=== PATIENT | male | born 1985 | race African-American/Black ===

== ENCOUNTER 2016-11-10 09:53 | Emergency (ER) | payer SELFPAY ==
[2016-11-10 10:52] VITALS: BP 133/73
--- NOTE | 2016-11-10 11:13 | PHYS DOC ---
Past Medical History Past Medical History: Asthma, Other Additional Past Medical Histor: SEASONAL ALLERGIES Past Surgical History: No Surgical History Alcohol Use: Occasionally Drug Use: None Adult General Chief Complaint Chief Complaint: MULTIPLE COMPLAINTS HPI HPI Patient is a 31 year old presents emergency department stating that he has been having a cough and congestion with nausea and vomiting patient states she' s also been having some diarrhea as well. He denies nausea vomiting and diarrhea today. He states he had approximately 3 diarrhea stools yesterday denies any blood being in the stool. Patient states he vomited yesterday denies any blood in the emesis. He states he's just has really felt as though he cannot get out of bed today and needed to come to the emergency department. He states that this is been occurring since Monday. Patient denies taTranquilMed medicaiton over the counter. Review of Systems Review of Systems Constitutional: Denies fever or chills [] Eyes: Denies change in visual acuity, redness, or eye pain [] HENT: nasal congestion denies sore throat [] Respiratory: cough denies shortness of breath [] Cardiovascular: No additional information not addressed in HPI [] GI: Denies abdominal pain, C/o nausea, vomiting, and diarrhea [] : Denies dysuria or hematuria [] Musculoskeletal: Denies back pain or joint pain [] Integument: Denies rash or skin lesions [] Neurologic: Denies headache, focal weakness or sensory changes [] Current Medications Current Medications Current Medications Medications (Trade) Dose Ordered Sig/Yony Start Time Stop Time Status Last Admin Dose Admin Ondansetron HCl (Zofran Odt) 4 mg 1X ONCE 11/10/16 11:15 11/10/16 11:16 DC 11/10/16 11:15 4 MG Allergies Allergies Allergies Coded Allergies Type Severity Reaction Last Updated Verified No Known Drug Allergies 12/21/14 No Physical Exam Physical Exam Constitutional: Well developed, well nourished, no acute distress, non-toxic appearance. [] HENT: Normocephalic, atraumatic, bilateral external ears normal, oropharynx moist, no oral exudates, nose normal. Bilateral tympanic membranes appear to be normal. Throat with no exudate. Eyes: PERRLA, EOMI, conjunctiva normal, no discharge. [] Neck: Normal range of motion, no tenderness, supple, no stridor. [] Cardiovascular:Heart rate regular rhythm, no murmur [] Lungs & Thorax: Bilateral breath sounds clear to auscultation [] Abdomen: Bowel sounds hypoactive, soft, no tenderness, no masses, no pulsatile masses. [] Skin: Warm, dry, no erythema, no rash. [] Back: No tenderness Extremities: No tenderness, no cyanosis, no clubbing, ROM intact, no edema. [] Neurologic: Alert and oriented X 3, normal motor function, normal sensory function, no focal deficits noted. [] Psychologic: Affect normal, judgement normal, mood normal. [] Current Patient Data Vital Signs Vital Signs Date Time Temp Pulse Resp B/P Pulse Ox O2 Delivery O2 Flow Rate FiO2 11/10/16 10:34 98.9 90 24 133/73 94 Room Air 98.9 Lab Values Laboratory Tests Test 11/10/16 11:20 Influenza Type A Antigen Positive (NEGATIVE) Influenza Type B Antigen Negative (NEGATIVE) EKG EKG [] Radiology/Procedures Radiology/Procedures [] Course & Med Decision Making Course & Med Decision Making Pertinent Labs and Imaging studies reviewed. (See chart for details) Influenza A was positive. Patient was provided with Zofran here in the emergency department with a by mouth challenge completed. Patient was able to tolerate fluids. Patient will be discharged home with recommendations for Tylenol and ibuprofen for fever chills and generalized body aches and discomfort. We'll provided with a prescription of Zofran for his nausea feeling recommended clear liquid diet for the next 24 hours. Also encourage plenty of fluids such as water or Gatorade and propel. Signs and symptoms to return back to emergency department as been provided. Patient agrees with discharge instructions treatment regimens and follow-up recommendations. [] Dragon Disclaimer Dragon Disclaimer This electronic medical record was generated, in whole or in part, using a voice recognition dictation system. Departure Departure Impression: Primary Impression: Influenza A Disposition: HOME, SELF-CARE Condition: STABLE Referrals: NO PCP (PCP) Patient Instructions: Influenza, Adult, [id number] Additional Instructions: You have been evaluated here in the emergency department. He had been noted to have influenza A. Drink plenty of fluids such as water, Gatorade, or propel. Tylenol or ibuprofen for fever chills or generalized body aches and discomfort. Medication as prescribed. Clear liquid diet for the next 24 hours. Rest as much as possible. Follow-up to primary care physician in the next week. Return back to emergency department for signs and symptoms of become worse. Scripts Ondansetron (Zofran Odt)4 Mg Tab.rapdis1 Tab SL Q8HRS #10 TAB Prov:ARLYN JASMINE NP 11/10/16 ARLYN JASMINE NP Nov 10, 2016 11:13
[2016-11-10] MEDS ORDERED: ONDANSETRON ODT 4 MG TAB.RAPDIS PO ONE (11:15)
[2016-11-10 11:56] LABS: OBC FLU VALID
[2016-11-10] MEDS ORDERED: ONDA4TAB10 SL (12:03)
== END 2016-11-10 12:01 | disposition home or self-care (01) ==
LOC: ER 09:53
DX: J09.X2 Influenza due to identified novel influenza A virus with other respiratory manifestations (principal); R11.2 Nausea with vomiting, unspecified; J45.909 Unspecified asthma, uncomplicated
CPT/HCPCS: 87804; 99284; Q0162

== ENCOUNTER 2019-05-14 12:42 | Emergency (ER) | payer BC ==
[~2019-05-14] VITALS: Ht 165.1 cm; Wt 77.1 kg
[~2019-05-14 12:42] MED LIST: ONDA4TAB10 SL
[2019-05-14 12:56] VITALS: BP 112/56
[2019-05-14] MEDS ORDERED: CYCL5TAB PO (13:06)
--- NOTE | 2019-05-14 13:06 | PHYS DOC ---
Past Medical History Past Medical History: No Pertinent History Additional Past Medical Histor: SEASONAL ALLERGIES Past Surgical History: No Surgical History Alcohol Use: None Drug Use: None Adult General Chief Complaint Chief Complaint: BACK PAIN - NO INJURY [facility] Patient is a 33 year old male presents to the ED complaining of right flank pain times one day ago. Patient states he lifts heavy things at work and states that when he stops lifting things and his muscles relaxed he felt pain in his right flank. States that when he tries to move it hurts worse. States that he thinks he pulled a muscle. Pain does not radiate. States he has not taken any medication for the pain. Denies fever, bowel/bladder changes, saddle anesthesia, radiating pain, weakness, dysuria, hematuria, headache, chest pain or shortness of breath. Review of Systems Review of Systems Constitutional: Denies fever or chills [] Eyes: Denies change in visual acuity, redness, or eye pain [] HENT: Denies nasal congestion or sore throat [] Respiratory: Denies cough or shortness of breath [] Cardiovascular: No additional information not addressed in HPI [] GI: Denies abdominal pain, nausea, vomiting, bloody stools or diarrhea [] : Denies dysuria or hematuria [] Musculoskeletal: Complains of back pain. Denies joint pain [] Integument: Denies rash or skin lesions [] Neurologic: Denies headache, focal weakness or sensory changes [] All other systems were reviewed and found to be within normal limits, except as documented in this note. Allergies Allergies Allergies Coded Allergies Type Severity Reaction Last Updated Verified No Known Drug Allergies 12/21/14 No Physical Exam Physical Exam Constitutional: Well developed, well nourished, no acute distress, non-toxic appearance. [] HENT: Normocephalic, atraumatic Neck: Normal range of motion, no tenderness, supple, no stridor. [] Cardiovascular:Heart rate regular rhythm, no murmur [] Lungs & Thorax: Bilateral breath sounds clear to auscultation [] Abdomen: Bowel sounds normal, soft, no tenderness, no masses, no pulsatile masses. [] Skin: Warm, dry, no erythema, no rash. [] Back: Mild right flank muscle spasm. No bony tenderness, FROM. NV intact. No overlying skin changes. Negative SLR. no CVA tenderness. [] Extremities: No tenderness, no cyanosis, no clubbing, ROM intact, no edema. [] Neurologic: Alert and oriented X 3, normal motor function, normal sensory function, no focal deficits noted. [] Psychologic: Affect normal, judgement normal, mood normal. [] EKG EKG [] Radiology/Procedures Radiology/Procedures [] Course & Med Decision Making Course & Med Decision Making Pertinent Labs and Imaging studies reviewed. (See chart for details) []No bony tenderness. Full range of motion. NV intact. Patient able to ambulate without assistance. No bowel or bladder changes. No saddle anesthesia. Discussed follow-up with orthopedics if pain persists. Provided contact information/education. Discussed reasons to return to the ED. Patient understands and agrees with plan. Dragon Disclaimer Dragon Disclaimer This electronic medical record was generated, in whole or in part, using a voice recognition dictation system. Departure Departure Impression: Primary Impression: Muscle strain Disposition: 01 HOME, SELF-CARE Condition: IMPROVED Referrals: NO PCP (PCP) MAKENNA BULLARD MD Patient Instructions: Back Pain, Adult Scripts Cyclobenzaprine Hcl (CYCLOBENZAPRINE HCL) 5 Mg Tablet 1 TAB PO TID, #12 TAB Prov: HEIDE FERNANDES 05/14/19 EHIDE FERNANDES May 14, 2019 13:06
== END 2019-05-14 13:10 | disposition home or self-care (01) ==
LOC: ER 12:42
DX: S39.011A Strain of muscle, fascia and tendon of abdomen, initial encounter (principal); X50.0XXA Overexertion from strenuous movement or load, initial encounter; Y93.89 Activity, other specified; Y92.89 Other specified places as the place of occurrence of the external cause; Y99.0 Civilian activity done for income or pay
CPT/HCPCS: 99283